=== PATIENT | female | born 1980 | race Two or more races ===

== ENCOUNTER 2018-05-21 08:30 | Emergency (ER) | payer MEDICAID ==
[~2018-05-21] VITALS: Ht 165.1 cm; Wt 106.6 kg
[2018-05-21 08:42] VITALS: BP 122/85
[2018-05-21] MEDS ORDERED: KETOROLAC TROMETH 60MG/2ML VIAL IM ONE (10:00)
== END 2018-05-21 10:44 | disposition home or self-care (01) ==
LOC: ER 08:30
DX: M54.42 Lumbago with sciatica, left side (principal); G89.29 Other chronic pain
CPT/HCPCS: 96372; 99283; J1885

== ENCOUNTER 2021-08-26 15:21 | Emergency (ER) | payer MEDICAID ==
[~2021-08-26] VITALS: Ht 165.1 cm; Wt 104.3 kg
[2021-08-26 21:21] VITALS: BP 146/81
[2021-08-26] MEDS ORDERED: methylPREDNISolone SOD SUCC 125 MG/2 ML VL IM ONE (21:30)
[2021-08-26] MEDS ORDERED: KETOROLAC TROMETH 60MG/2ML VIAL IM ONE (21:30)
== END 2021-08-26 22:26 | disposition home or self-care (01) ==
LOC: ER 15:21
DX: S33.5XXA Sprain of ligaments of lumbar spine, initial encounter (principal); M54.16 Radiculopathy, lumbar region; E66.9 Obesity, unspecified; Z68.38 Body mass index [BMI] 38.0-38.9, adult; X58.XXXA Exposure to other specified factors, initial encounter; Y93.89 Activity, other specified; Y92.89 Other specified places as the place of occurrence of the external cause; Y99.8 Other external cause status
CPT/HCPCS: 72100; 96372; 99284; J1885; J2930

== ENCOUNTER 2021-10-20 12:37 | Inpatient (IN) | payer MEDICAID ==
[~2021-10-20] VITALS: Ht 165.1 cm; Wt 110.6 kg
[2021-10-20 14:04] LABS: Basophils # (auto) 0.1 10 ^3/uL (0-0.2); Eosinophils # (auto) 0.3 10 ^3/uL (0-0.8); Hemoglobin 14.1 g/dL (12.2-16.2); Monocytes # (auto) 0.5 10 ^3/uL (0-1.3)
[2021-10-20 14:07] LABS: Basophils % (auto) 0.6 % (0.0-2.0); Eosinophils % (auto) 2.8 % (0.0-7.0); Hematocrit 43.2 % (36.0-46.0); Lymphocytes # (auto) 3.5 10 ^3/uL (0.4-5.4); Mean Corpuscular Hemoglobin 26.2 pg (28.0-32.0); Mean Corpuscular Hgb Conc. 32.6 g/dL (32.0-36.0); Mean Corpuscular Volume 80.4 fL (80.0-100.0); Monocytes % (auto) 5.5 % (0.0-12.0); Neutrophils # (auto) 4.7 10 ^3/uL (1.6-8.6); Neutrophils % (auto) 52.1 % (37.0-80.0); Nucleated Red Blood Cells % 0.1 %; Red Blood Cells 5.37 10^6/uL (4.0-5.20); White Blood Cell 8.9 10^3/uL (4.4-10.8)
[2021-10-20 14:20] LABS: Albumin 4.1 g/dL (3.4-5.0); BUN/Creatinine Ratio 12.2; Calcium 9.6 mg/dL (8.5-10.1); Potassium 4.3 mmol/L (3.5-5.1)
[2021-10-20 14:22] LABS: Bilirubin, Total 0.4 mg/dL (0.2-1.0); Total Protein 9.1 g/dL (6.4-8.2)
[2021-10-20] MEDS ORDERED: LACTATED RINGER'S 1,000 ML IV ONE (16:15)
[2021-10-20] MEDS: ACCU-CHEK COMFORT CURVE STRIP VI SCH (23:00)
[2021-10-20] MEDS ORDERED: TEMAZEPAM 15 MG CAP PO PRN (23:00)
[2021-10-20] MEDS ORDERED: ONDANSETRON HCL 4 MG/2 ML VIAL IV PRN (23:00)
[2021-10-20] MEDS ORDERED: DEXTROSE (50%) 50ML SYRG IV PRN (23:00)
[2021-10-20] MEDS ORDERED: ACETAMINOPHEN 325 MG TAB PO PRN (23:00)
[2021-10-20] MEDS: InsuLIN REG 1unit/0.01ml Soln (100units/ml) SC SCH (23:49)
[2021-10-20] MEDS: SODIUM CHLORIDE 0.9% 1,000 ML IV SCH (23:55)
[2021-10-21 03:38] LABS: Basophils # (auto) 0 10 ^3/uL (0-0.2); Eosinophils # (auto) 0.3 10 ^3/uL (0-0.8); Hemoglobin 12.9 g/dL (12.2-16.2); Monocytes # (auto) 0.5 10 ^3/uL (0-1.3); Neutrophils # (auto) 3.9 10 ^3/uL (1.6-8.6); Nucleated Red Blood Cells % 0.1 %; White Blood Cell 8.1 10^3/uL (4.4-10.8)
[2021-10-21 03:41] LABS: Basophils % (auto) 0.5 % (0.0-2.0); Eosinophils % (auto) 3.7 % (0.0-7.0); Hematocrit 39.1 % (36.0-46.0); Lymphocytes # (auto) 3.4 10 ^3/uL (0.4-5.4); Lymphocytes % (auto) 41.4 % (10.0-50.0); Mean Corpuscular Hemoglobin 26.2 pg (28.0-32.0); Mean Corpuscular Volume 79.4 fL (80.0-100.0); Monocytes % (auto) 6.1 % (0.0-12.0); Neutrophils % (auto) 48.3 % (37.0-80.0); Red Blood Cells 4.93 10^6/uL (4.0-5.20); Red Cell Distribution Width 14.9 % (11.8-14.3)
[2021-10-21 03:54] LABS: Albumin 3.6 g/dL (3.4-5.0); BUN/Creatinine Ratio 14.4; Calcium 9.2 mg/dL (8.5-10.1)
[2021-10-21] MEDS: ACCU-CHEK COMFORT CURVE STRIP VI SCH ×6 (04:14→21:45)
[2021-10-21 04:18] LABS: Bilirubin, Total 0.4 mg/dL (0.2-1.0); Total Protein 7.7 g/dL (6.4-8.2)
[2021-10-21] MEDS: InsuLIN REG 1unit/0.01ml Soln (100units/ml) SC SCH ×5 (04:27→21:25)
[2021-10-21 06:17] LABS: Urine Bacteria FEW /hpf (None Seen); Urine Blood Negative /uL (Negative); Urine Mucus FEW (None Seen); Urine WBC 1 /hpf (0 - 5)
[2021-10-21] MEDS: SODIUM CHLORIDE 0.9% 1,000 ML IV SCH ×2 (07:39→21:33)
[2021-10-21] MEDS: ASCORBIC ACID 500 MG TAB PO SCH ×2 (09:05→21:35)
[2021-10-21] MEDS: ZINC SULFATE 220mg CAP or TAB PO SCH (09:05)
[2021-10-21] MEDS: MULTIPLE VITAMIN TAB PO SCH (09:05)
[2021-10-21 15:22] LABS: Hepatitis A Ab IgM Negative
[2021-10-21 15:23] LABS: Hepatitis B Core IgM Negative; Hepatitis C Antibody Negative (Negative)
[2021-10-21 15:52] VITALS: BP 114/70
[2021-10-21] MEDS ORDERED: DEXTROSE (50%) 50ML SYRG IV PRN (17:00)
[2021-10-21] MEDS ORDERED: BLOO1KIT60 XX (20:05)
[2021-10-21] MEDS ORDERED: INSUINJ37 SC (20:05)
[2021-10-21] MEDS ORDERED: INSU-1224 XX (20:05)
[2021-10-21] MEDS ORDERED: INSU100I44 SC (20:05)
[2021-10-21] MEDS: INSULIN LANTUS (GLARGINE) 1 /0.01ml (100units/ml) SC SCH (21:33)
[2021-10-21 22:00] VITALS: BP 105/67
[2021-10-22 05:00] VITALS: BP 118/77
[2021-10-22] MEDS: SODIUM CHLORIDE 0.9% 1,000 ML IV SCH (05:02)
[2021-10-22] MEDS: InsuLIN REG 1unit/0.01ml Soln (100units/ml) SC SCH ×2 (06:26→11:30)
[2021-10-22] MEDS: ACCU-CHEK COMFORT CURVE STRIP VI SCH ×2 (06:27→15:32)
[2021-10-22 09:00] VITALS: BP 115/76
[2021-10-22] MEDS: ZINC SULFATE 220mg CAP or TAB PO SCH (09:49)
[2021-10-22] MEDS: INSULIN LANTUS (GLARGINE) 1 /0.01ml (100units/ml) SC SCH (09:49)
[2021-10-22] MEDS: ASCORBIC ACID 500 MG TAB PO SCH (09:49)
[2021-10-22] MEDS: MULTIPLE VITAMIN TAB PO SCH (09:49)
[2021-10-22 12:37] VITALS: BP 108/68
[2021-10-22 15:08] VITALS: BP 108/68
== END 2021-10-22 15:52 | disposition home health service (06) | DRG 420 ==
LOC: ER 12:37 → OVERFLOW 22:56 → WEST WING 10-21 15:16
PROVIDERS: ADMIT Nurse Practitioner; ATTEND Internal Medicine
DX: E11.65 Type 2 diabetes mellitus with hyperglycemia (principal); N17.9 Acute kidney failure, unspecified; K76.0 Fatty (change of) liver, not elsewhere classified; E86.0 Dehydration; E66.01 Morbid (severe) obesity due to excess calories; Z20.822 Contact with and (suspected) exposure to COVID-19; Z68.41 Body mass index [BMI] 40.0-44.9, adult
CPT/HCPCS: 36415; 36600; 71046; 76705; 80053; 80074; 81001; 82010; 82728; 82805; 82962; 83036; 84702; 85025; 87426; 93005; 96361; 96372; 96374; G0378; J1815; J2405

== ENCOUNTER 2022-10-21 05:42 | Emergency (ER) | payer MEDICAID ==
[~2022-10-21] VITALS: Ht 165.1 cm; Wt 111.0 kg
[~2022-10-21 05:42] MED LIST: BLOO1KIT60 XX; INSU-1224 XX; INSU100I44 SC; INSUINJ37 SC
[2022-10-21] MEDS ORDERED: guaiFENesin-DM 100/10mg/5ml SYR PO ONE (07:30)
[2022-10-21] MEDS ORDERED: ACETAMINOPHEN 500 MG TAB PO ONE (07:30)
[2022-10-21 08:07] LABS: Urine Bacteria NONE SEEN /hpf (None Seen); Urine Blood Negative /uL (Negative); Urine Hyaline Cast FEW /lpf (0 - 2); Urine Mucus FEW (None Seen); Urine WBC 1 /hpf (0 - 5)
[2022-10-21] MEDS ORDERED: ONDANSETRON ODT 4 MG TAB PO ONE (08:30)
[2022-10-21] MEDS ORDERED: AZITTAB PO (09:59)
[2022-10-21] MEDS ORDERED: ONDA-144 PO (09:59)
[2022-10-21 10:13] VITALS: BP 130/82
[2022-10-21] MEDS ORDERED: SODIUM CHLORIDE 0.9% 1,000 ML IV ONE (10:30)
[2022-10-21] MEDS ORDERED: PROM1SOL4 PO (10:51)
== END 2022-10-21 11:14 | disposition home or self-care (01) ==
LOC: ER 05:43
DX: J06.9 Acute upper respiratory infection, unspecified (principal); Z79.899 Other long term (current) drug therapy; Z20.822 Contact with and (suspected) exposure to COVID-19
CPT/HCPCS: 36415; 71045; 81001; 81025; 87426; 87804; 96360; 99284; J7030; Q0162

== ENCOUNTER 2023-01-05 21:42 | Emergency (ER) | payer MEDICAID ==
[~2023-01-05] VITALS: Ht 165.1 cm; Wt 61.3 kg
[~2023-01-05 21:42] MED LIST changes: +AZITTAB PO; +ONDA-144 PO; +PROM1SOL4 PO
[2023-01-06] MEDS ORDERED: ONDA-144 PO (01:27)
[2023-01-06] MEDS ORDERED: PERCOT PO ×2 (01:27→01:38)
[2023-01-06] MEDS ORDERED: DexAMETHasone SOD PHOS 10MG/1ML VIAL INJ IM ONE (01:30)
[2023-01-06] MEDS ORDERED: OXYCODONE W/ ACETAMINOPHEN 5/325MG TABLET PO ONE (01:30)
[2023-01-06] MEDS ORDERED: PRED20TA2 PO (01:38)
[2023-01-06 01:51] VITALS: BP 149/109
== END 2023-01-06 01:52 | disposition home or self-care (01) ==
LOC: ER 21:42
DX: S00.03XA Contusion of scalp, initial encounter (principal); R42 Dizziness and giddiness; E11.9 Type 2 diabetes mellitus without complications; X58.XXXA Exposure to other specified factors, initial encounter; Y93.89 Activity, other specified; Y92.89 Other specified places as the place of occurrence of the external cause; Y99.8 Other external cause status
CPT/HCPCS: 70450; 96372; 99285; J1100

== ENCOUNTER 2023-01-17 15:09 | Emergency (ER) | payer MEDICAID ==
[~2023-01-17] VITALS: Ht 165.1 cm; Wt 112.3 kg
[~2023-01-17 15:09] MED LIST changes: +PERCOT PO; +PRED20TA2 PO
[2023-01-17] MEDS ORDERED: ONDANSETRON ODT 4 MG TAB PO ONE (15:45)
[2023-01-17] MEDS ORDERED: MECLIZINE HCL 25 MG TAB PO ONE (15:45)
[2023-01-17 16:02] LABS: Basophils # (auto) 0.1 10 ^3/uL (0-0.2); Basophils % (auto) 0.6 % (0.0-2.0); Hemoglobin 12.9 g/dL (12.2-16.2)
[2023-01-17 16:04] LABS: Eosinophils # (auto) 0.3 10 ^3/uL (0-0.8); Eosinophils % (auto) 2.7 % (0.0-7.0); Hematocrit 38.2 % (36.0-46.0); Lymphocytes # (auto) 3.5 10 ^3/uL (0.4-5.4); Lymphocytes % (auto) 35.4 % (10.0-50.0); Mean Corpuscular Hgb Conc. 33.8 g/dL (32.0-36.0); Monocytes # (auto) 0.5 10 ^3/uL (0-1.3); Monocytes % (auto) 5.3 % (0.0-12.0); Neutrophils # (auto) 5.5 10 ^3/uL (1.6-8.6); Nucleated Red Blood Cells % 0.2 %; Red Blood Cells 4.96 10^6/uL (4.0-5.20); White Blood Cell 9.9 10^3/uL (4.4-10.8)
[2023-01-17 16:20] LABS: Albumin 3.4 g/dL (3.4-5.0); Potassium 3.6 mmol/L (3.5-5.1)
[2023-01-17 16:23] LABS: BUN/Creatinine Ratio 15.7 (10.0-20.0); Bilirubin, Total 0.4 mg/dL (0.2-1.0); Total Protein 7.8 g/dL (6.4-8.2)
[2023-01-17] MEDS ORDERED: IBUPROFEN 800 MG TAB PO ONE (19:00)
[2023-01-17 19:34] LABS: Urine Bacteria FEW /hpf (None Seen); Urine Blood Negative /uL (Negative); Urine Mucus FEW (None Seen); Urine Specific Gravity 1.005 (1.001-1.035); Urine WBC <1 /hpf (0 - 5)
[2023-01-17] MEDS ORDERED: IBUP800T26 PO (20:06)
[2023-01-17] MEDS ORDERED: ONDA-144 PO (20:06)
[2023-01-17] MEDS ORDERED: MECL1TAB42 PO (20:06)
[2023-01-17 20:18] VITALS: BP 139/79
== END 2023-01-17 20:26 | disposition home or self-care (01) ==
LOC: ER 15:09
DX: R42 Dizziness and giddiness (principal); R51.9 Headache, unspecified; K76.0 Fatty (change of) liver, not elsewhere classified; E11.9 Type 2 diabetes mellitus without complications
CPT/HCPCS: 36415; 70450; 80053; 81001; 82962; 85025; 93005; 99284; J8597; Q0162

== ENCOUNTER 2023-06-07 19:07 | Emergency (ER) | payer MEDICAID ==
[~2023-06-07] VITALS: Ht 165.1 cm; Wt 107.3 kg
[~2023-06-07 19:07] MED LIST changes: +IBUP-1455 PO; -INSU100I44 SC; +INSU100I54 SC; +MECL1TAB42 PO
[2023-06-07 20:41] LABS: Alanine Aminotransferase 166 U/L (7-40); Albumin 4.7 g/dL (3.2-4.8); Alkaline Phosphatase 117 U/L (46-116); Anion Gap 8.8 (5-15); Aspartate Aminotransferase 65 U/L (13-40); BUN/Creatinine Ratio 11.5 (10.0-20.0); Bilirubin, Total 0.3 mg/dL (0.2-1.0); Blood Urea Nitrogen 13 mg/dL (9-23); Calcium 9.9 mg/dL (8.7-10.4); Carbon Dioxide 24.2 mmol/L (20-30); Chloride 99 mmol/L (98-107); Glucose 365 mg/dL (74-106); Potassium 4.7 mmol/L (3.5-5.1); Sodium 132 mmol/L (136-145)
[2023-06-07 20:42] LABS: Total Protein 8.2 g/dL (5.7-8.2)
[2023-06-07 20:43] LABS: Basophils # (auto) 0.1 10 ^3/uL (0-0.2); Basophils % (auto) 0.6 % (0.0-2.0); Eosinophils # (auto) 0.3 10 ^3/uL (0-0.8); Eosinophils % (auto) 2.9 % (0.0-7.0); Hematocrit 41.4 % (36.0-46.0); Hemoglobin 13.6 g/dL (12.2-16.2); Lymphocytes % (auto) 43.6 % (10.0-50.0); Mean Corpuscular Hemoglobin 26.1 pg (28.0-32.0); Mean Corpuscular Hgb Conc. 32.9 g/dL (32.0-36.0); Mean Corpuscular Volume 79.5 fL (80.0-100.0); Monocytes # (auto) 0.4 10 ^3/uL (0-1.3); Monocytes % (auto) 4.9 % (0.0-12.0); Neutrophils # (auto) 4.4 10 ^3/uL (1.6-8.6); Nucleated Red Blood Cells % 0.2 %; Red Blood Cells 5.21 10^6/uL (4.0-5.20); Red Cell Distribution Width 14.7 % (11.8-14.3); White Blood Cell 9.1 10^3/uL (4.4-10.8)
[2023-06-07 20:48] LABS: Urine Bacteria NONE SEEN /hpf (None Seen); Urine Blood Negative /uL (Negative); Urine Clarity Clear (Clear); Urine Color Colorless (Yellow); Urine Protein, UAD TRACE (Negative); Urine Specific Gravity 1.034 (1.001-1.035); Urine Urobilinogen Normal (Negative); Urine WBC 2 /hpf (0 - 5)
[2023-06-07] MEDS ORDERED: LACTATED RINGER'S 1,000 ML IV ONE (22:30)
[2023-06-07] MEDS ORDERED: InsuLIN REG 1unit/0.01ml Soln (100units/ml) IV ONE (22:30)
[2023-06-08 00:09] VITALS: BP 122/89; PULSE 99; RESP 18; TEMP 97.9; O2SAT 95
== END 2023-06-08 03:08 | disposition home or self-care (01) ==
LOC: ER 19:11
DX: E11.65 Type 2 diabetes mellitus with hyperglycemia (principal); E11.22 Type 2 diabetes mellitus with diabetic chronic kidney disease; N18.9 Chronic kidney disease, unspecified; R94.4 Abnormal results of kidney function studies; R74.01 Elevation of levels of liver transaminase levels; R74.8 Abnormal levels of other serum enzymes; Z79.1 Long term (current) use of non-steroidal anti-inflammatories (NSAID); Z79.4 Long term (current) use of insulin; Z79.899 Other long term (current) drug therapy
CPT/HCPCS: 36415; 80053; 81001; 81025; 82010; 82962; 85025; 96361; 96374; 99283; J1815

== ENCOUNTER 2024-07-02 20:20 | Emergency (ER) | payer MEDICAID ==
[~2024-07-02] VITALS: Ht 165.1 cm; Wt 102.2 kg
[2024-07-02 21:18] LABS: Basophils # (auto) 0 10 ^3/uL (0-0.2); Nucleated Red Blood Cells % 0.1 %
[2024-07-02 21:19] LABS: Basophils % (auto) 0.3 % (0.0-2.0); Eosinophils # (auto) 0.2 10 ^3/uL (0-0.8); Eosinophils % (auto) 1.7 % (0.0-7.0); Hematocrit 40.2 % (36.0-46.0); Hemoglobin 13.3 g/dL (12.2-16.2); Lymphocytes # (auto) 3.8 10 ^3/uL (0.4-5.4); Lymphocytes % (auto) 38.4 % (10.0-50.0); Mean Corpuscular Hemoglobin 26.2 pg (28.0-32.0); Mean Corpuscular Hgb Conc. 33.1 g/dL (32.0-36.0); Mean Corpuscular Volume 79.2 fL (80.0-100.0); Monocytes # (auto) 0.5 10 ^3/uL (0-1.3); Monocytes % (auto) 5.5 % (0.0-12.0); Neutrophils # (auto) 5.3 10 ^3/uL (1.6-8.6); Neutrophils % (auto) 54.1 % (37.0-80.0); Platelet Count (auto) 344 10^3/uL (140-450); Red Blood Cells 5.07 10^6/uL (4.0-5.20); Red Cell Distribution Width 17.8 % (11.8-14.3); White Blood Cell 9.8 10^3/uL (4.4-10.8)
[2024-07-02 21:32] LABS: Alanine Aminotransferase 36 U/L (7-40); Albumin 5.1 g/dL (3.2-4.8); Alkaline Phosphatase 82 U/L (46-116); Anion Gap 7 (5-15); Aspartate Aminotransferase 22 U/L (13-40); BUN/Creatinine Ratio 11.1 (10.0-20.0); Blood Urea Nitrogen 11 mg/dL (9-23); Calcium 10.8 mg/dL (8.7-10.4); Carbon Dioxide 27 mmol/L (20-31); Chloride 104 mmol/L (98-107); Glucose 88 mg/dL (74-106); Potassium 3.4 mmol/L (3.5-5.1); Sodium 138 mmol/L (136-145)
[2024-07-02 21:33] LABS: Bilirubin, Total 0.4 mg/dL (0.2-1.0); INR 1.07 (0.9-1.15); Prothrombin Time 11.3 sec (9.3-11.8); Total Protein 8.4 g/dL (5.7-8.2)
[2024-07-02 22:24] VITALS: BP 115/79; TEMP 98.4
[2024-07-02 22:26] VITALS: PULSE 76; RESP 19; O2SAT 95
[2024-07-02] MEDS: KETOROLAC TROMETH 60MG/2ML VIAL IM ONE (22:33)
== END 2024-07-02 23:56 | disposition home or self-care (01) ==
LOC: ER 20:20
DX: M94.0 Chondrocostal junction syndrome [Tietze] (principal); E11.9 Type 2 diabetes mellitus without complications; E66.01 Morbid (severe) obesity due to excess calories; Z68.37 Body mass index [BMI] 37.0-37.9, adult; Z79.52 Long term (current) use of systemic steroids; Z79.899 Other long term (current) drug therapy; Z79.4 Long term (current) use of insulin
CPT/HCPCS: 36415; 71045; 80053; 83735; 83880; 84484; 85025; 85610; 85730; 93005; 96372; 99285; J1885